=== PATIENT | female | born 1960 | race Caucasian/White ===

== ENCOUNTER → 2016-05-09 | Outpatient (CLI) | payer BC | LOC: FIMAGING 08:10 | DX: Z12.31 Encounter for screening mammogram for malignant neoplasm of breast (principal); Z85.3 Personal history of malignant neoplasm of breast | CPT/HCPCS: G0202 ==

== ENCOUNTER → 2016-05-18 | Outpatient (CLI) | payer BC | LOC: CIMAGING 12:53 | PROVIDERS: ATTEND Internal Medicine Hematology & Oncology | DX: Z03.89 Encounter for observation for other suspected diseases and conditions ruled out (principal); D05.10 Intraductal carcinoma in situ of unspecified breast | CPT/HCPCS: 76641-PO; G0206 ==

== ENCOUNTER → 2017-05-28 | Outpatient (CLI) | payer BC | LOC: FIMAGING 07:49 | PROVIDERS: ATTEND Internal Medicine Hematology & Oncology | DX: Z12.31 Encounter for screening mammogram for malignant neoplasm of breast (principal); Z85.3 Personal history of malignant neoplasm of breast ==

== ENCOUNTER 2018-05-26 22:25 | Emergency (ER) | payer BC ==
--- NOTE | 2018-05-26 23:33 | EDPHY ---
H & P Stated Complaint: back/abd cramping, nausea - Personal History Current Tetanus Diphtheria and Acellular Pertussis (TDAP): Yes - Medical/Surgical History Hx Asthma: No Hx Chronic Respiratory Disease: No Hx Diabetes: No Hx Cardiac Disease: No Hx Renal Disease: No Hx Cirrhosis: No Hx Alcoholism: No Hx HIV/AIDS: No Hx Splenectomy or Spleen Trauma: No Other PMH: migraines - Social History Smoking Status: Never smoked Time Seen by Provider: 05/26/18 23:16 HPI/ROS: CHIEF COMPLAINT: Suprapubic pain and cramping HISTORY OF PRESENT ILLNESS: 57-year-old immunocompetent female complaining of suprapubic pain, pressure, cramping sensation, dysuria since this evening, described as "really bad menstrual cramps" however the patient is postmenopausal. She also reports intermittent radiation to her low back. No vaginal bleeding or discharge. PRIMARY CARE PROVIDER: REVIEW OF SYSTEMS: 10 systems reviewed and negative with the exception of the elements mentioned in the history of present illness PAST MEDICAL & SURGICAL HISTORY: Migraine headache SOCIAL HISTORY: PHYSICAL EXAM (Prior to examination, patient consented to physical exam, hands were washed and my usual and customary physical exam procedures followed) 1) GENERAL: Well-developed, well-nourished, alert and oriented. Appears to be in no acute distress. 2) HEAD: Normocephalic, atraumatic 3) HEENT: Pupils equal, round, reactive to light bilaterally. Sclera anicteric. 4) NECK: Full range of motion, no meningeal signs. 5) LUNGS: Clear auscultation bilaterally, no wheezes, no rhonchi, no retractions. 6) HEART: Regular rate and rhythm, no murmur, no heave, no gallop. 7) ABDOMEN: No guarding, no rebound, no focal tenderness, negative McBurney's, negative Resendiz's, negative Rovsing's, negative peritoneal sign,I am unable to elicit any abdominal pain whatsoever on exam 8) MUSCULOSKELETAL: Moving all extremities, no focal areas of tenderness, no obvious trauma. No peripheral edema or discoloration. 9) BACK: No CVA tenderness, no midline vertebral tenderness, no fluctuance, no step-off, no obvious trauma, no visual or palpable abnormality. 10) SKIN: No rash, no petechiae. 11) Psychiatric: Patient is oriented X 3, there is no agitation. DIFFERENTIAL DIAGNOSIS: My differential diagnosis includes, but is not limited to, acute appendicitis, acute cholecystitis, bowel obstruction, acute pancreatitis, ovarian torsion, ectopic , gastritis and urinary tract infection. The patient understands that this diagnosis is provisional and can never be 100% accurate. This is a partial list of diagnoses considered. These considerations are based on history, physical exam, past history and reassessment. (Georgina Chambers) Constitutional: Initial Vital Signs Temperature (C) 37 C 05/26/18 22:27 Heart Rate 76 05/26/18 22:27 Respiratory Rate 16 05/26/18 22:27 Blood Pressure 141/69 H 05/26/18 22:27 O2 Sat (%) 98 05/26/18 22:27 O2 Delivery Mode Room Air Allergies/Adverse Reactions: No Known Intolerances Allergy (Verified 08/05/12 20:25) Home Medications: Medication Instructions Recorded Estradiol [Estrace Vaginal] 1 ira VAG WE@2100 08/05/12 Pharmacist Completed 08/05/12 08/05/12 Topiramate 05/26/18 Hydrocodone/Acetaminophen 1 - 2 each PO Q4-6PRN PRN #10 05/27/18 [Hydrocodon-Acetaminophen 5-325] tablet Medical Decision Making - Diagnostics Imaging Results: Pelvic ultrasound shows a 4.8 cm complex mass in the right ovary, question fat containing, normal flow, differential glued stool dermoid cyst versus other nonspecified mass. Radiology is recommending he CT scan or pelvic MRI. Study interpreted by Dr. Anderson. (Lorenzo Live) ED Course/Re-evaluation: Ultrasound results noted. I have discussed with patient. Plan will be to discharge with follow up with OBGYN, return for any concerns. Will discharge with oral analgesia. (Lorenzo Live) 12:18 a.m.: Re-evaluation. Patient's urinalysis positive only for 1+ bacteria. I am re-examined the patient at this time she complains of suprapubic cramping sensation. Discussed possible etiologies for her pain. We discussed possibility of ovarian pathology, possible diverticulitis. Recommend laboratory studies, pelvic ultrasound, possible CT imaging. 1:30 a.m.: Care turned over to Dr. Live, awaiting ultrasound imaging results ( Georgina Chambers) - Data Points Laboratory Results: Laboratory Results 05/27/18 00:26 05/27/18 00:26 Microbiology Results: MICROBIOLOGY 05/26/18 23:30 Urine,Clean Catch Urine Culture - Preliminary Gram Neg Shaun Lactose Legal Records Clerk [facility] [place] Type Medications Given: Discontinued Medications Hydrocodone Bitart/Acetaminophen ([place] 5/325mg Prepack#6) 1 btl TAKEHOME EDNOW ONE Stop: 05/27/18 02:49 Last Admin: 05/27/18 02:52 Dose: 1 btl Departure - Departure Disposition: Home, Routine, Self-Care Clinical Impression: Ovarian mass Condition: Good Instructions: Hydrocodone/Acetaminophen (By mouth), Pelvic Pain (ED) Additional Instructions: Follow up with OBGYN in 1-2 days for further evaluation. Return to the emergency depart for worsening pain, uncontrolled nausea vomiting , fevers or chills, or any other concerns. Referrals: Verito Hurd MD [Primary Care Provider] - As per Instructions Kristi Gayle MD [Medical Doctor] - As per Instructions Prescriptions: Hydrocodone/Acetaminophen [Hydrocodon-Acetaminophen 5-325] 1 - 2 each PO Q4- 6PRN PRN #10 tablet PRN Reason: Pain, Severe
[2018-05-27 00:43] LABS: PLATELET COUNT 252 10^3/uL (150-400)
[2018-05-27 01:43] VITALS: BP 122/60
[2018-05-27] MEDS ORDERED: HYDROCOD/APAP 5/325 PREPACK#6 BTL TAKEHOME ONE (02:48)
== END 2018-05-27 02:59 | disposition home or self-care (01) ==
DX: N83.9 Noninflammatory disorder of ovary, fallopian tube and broad ligament, unspecified (principal); Z78.0 Asymptomatic menopausal state

== ENCOUNTER → 2018-05-29 | Outpatient (CLI) | payer BC ==
[~2018-05-29] MED LIST: GADOBUTROL 10 ML VIAL IVP ONE
== END ==
LOC: FIMAGING 07:49
PROVIDERS: ATTEND Internal Medicine
DX: Z12.31 Encounter for screening mammogram for malignant neoplasm of breast (principal); Z85.3 Personal history of malignant neoplasm of breast; D27.1 Benign neoplasm of left ovary
CPT/HCPCS: A9585

== ENCOUNTER 2018-07-01 05:43 | Day surgery (SDC) | payer BC ==
[2018-07-01] MEDS ORDERED: LR 1,000 ML IV ONE (06:05)
[2018-07-01 06:38] LABS: PLATELET COUNT 235 10^3/uL (150-400)
[2018-07-01] MEDS ORDERED: BUPIVACAINE 0.25% 30 ML SDV ONE ×2 (06:50→06:51)
[2018-07-01] MEDS ORDERED: MIDAZOLAM 2 MG/2 ML VIAL IVP ONE (07:01)
--- NOTE | 2018-07-01 07:02 | PDANEPAE ---
ANE History of Present Illness dermoid cyst ANE Past Medical History - Cardiovascular History Hx Hypertension: No Hx Arrhythmias: No Hx Chest Pain: No Hx Coronary Artery / Peripheral Vascular Disease: No Hx CHF / Valvular Disease: No Hx Palpitations: No - Pulmonary History Hx COPD: No Hx Asthma/Reactive Airway Disease: No Hx Recent Upper Respiratory Infection: No Hx Oxygen in Use at Home: No Hx Sleep Apnea: No Sleep Apnea Screening Result - Last Documented: Negative - Neurologic History Hx Cerebrovascular Accident: No Hx Seizures: No Hx Dementia: No - Endocrine History Hx Diabetes: No Hypothyroid: No Hyperthyroid: No Obesity: no - Renal History Hx Renal Disorders: No - Liver History Hx Hepatic Disorders: No - Neurological & Psychiatric Hx Hx Neurological and Psychiatric Disorders: Yes Neurological / Psychiatric History Comment: migraines - Cancer History Hx Cancer: Yes Cancer History Comment: breast - Congenital Disorder History Hx Congenital Disorders: No - GI History GERD: no Hx Gastrointestinal Disorders: No - Other Health History Other Health History: dental implants. dermoid cyst - Chronic Pain History Chronic Pain: No - Surgical History Prior Surgeries: lumpectomy 12yrs ago. ectopic ANE Review of Systems Review of systems is: negative Review of Systems: - Exercise capacity Exercise capacity: >=4 METS METS (RN): 5 METS ANE Patient History - Allergies Allergies/Adverse Reactions: No Known Allergies Allergy (Verified 06/27/18 10:42) - Home Medications Home medications: home medication list seen and reviewed Home Medications: Topiramate 05/26/18 [Last Taken 06/30/18] Herbals/Supplements -Info Only 06/27/18 [Last Taken 1 Week Ago ~06/24/18] - NPO status NPO Status: no food or drink >8 hours NPO Since - Liquids (Date): 07/01/18 NPO Since - Liquids (Time): 05:00 NPO Since - Solids (Date): 06/30/18 NPO Since - Solids (Time): 19:30 - Anes Hx Anes Hx: no prior problems - Smoking Hx Smoking Status: Never smoked - Family Anes Hx Family Hx Anesthesia Complications: none ANE Labs/Vital Signs - Labs Result Diagrams: 07/01/18 06:15 - Vital Signs Vital Signs: reviewed preoperatively; see RN documention for details Blood Pressure: 110/56 Heart Rate: 68 Respiratory Rate: 14 O2 Sat (%): 96 Height: 175.26 cm Weight: 63.503 kg ANE Physical Exam - Airway Neck exam: FROM Mallampati Score: Class 2 Mouth exam: normal dental/mouth exam - Pulmonary Pulmonary: no respiratory distress, clear to auscultation - Cardiovascular Cardiovascular: regular rate and rhythym, no murmur, rub, or gallop - ASA Status ASA Status: II ANE Anesthesia Plan Anesthesia Plan: general endotracheal anesthesia
[2018-07-01] MEDS ORDERED: fentaNYL 100 MCG/2 ML INJ ONE ×2 (07:08→09:17)
[2018-07-01] MEDS ORDERED: PROPOFOL/EMULSION 500 MG/50 ML BOTTLE IV ONE (07:08)
[2018-07-01] MEDS ORDERED: PROPOFOL 200 MG/20 ML VIAL ONE ×2 (07:08→08:27)
--- NOTE | 2018-07-01 07:32 | PDHPUP ---
History & Physical Update H&P update statement: This history and physical update is based on an assessment of the patient which was completed after admission or registration (within 24 hours), but prior to the surgery/procedure. H&P update: H&P reviewed & patient examined, no change in patient's condition since H&P completed
[2018-07-01] MEDS ORDERED: DEXAMETHASONE 4 MG/ML VIAL ONE ×2 (07:46)
[2018-07-01] MEDS ORDERED: ONDANSETRON 4 MG/2 ML VIAL ONE (07:46)
[2018-07-01] MEDS ORDERED: NALOXONE HCL 0.4 MG/ML INJ IVP PRN (08:25)
[2018-07-01] MEDS ORDERED: LR 500 ML IV PRN (08:25)
[2018-07-01] MEDS ORDERED: PROMETHAZINE HCL 25 MG/ML INJ IVP PRN (08:25)
[2018-07-01] MEDS ORDERED: ALBUTEROL 3 ML DEYVIAL IH PRN (08:25)
[2018-07-01] MEDS ORDERED: HYDROmorphONE/DILAUDID 1 MG/ML INJ IVP PRN (08:25)
[2018-07-01] MEDS ORDERED: ONDANSETRON 4 MG/2 ML VIAL IVP PRN (08:25)
[2018-07-01] MEDS ORDERED: fentaNYL 100 MCG/2 ML INJ IVP PRN (08:25)
[2018-07-01] MEDS ORDERED: DEXAMETHASONE 4 MG/ML VIAL IVP PRN (08:25)
[2018-07-01] MEDS ORDERED: PHENYLEPHRINE HCL 100 MCG/ML SYR IVP PRN (08:25)
[2018-07-01] MEDS ORDERED: MEPERIDINE 25 MG/0.5 ML AMP IVP PRN (08:25)
[2018-07-01] MEDS ORDERED: LABETALOL HCL 5 MG/ML 20 ML MDV IVP PRN (08:25)
[2018-07-01] MEDS ORDERED: oxyCODONE IR 5 MG TAB PO PRN (08:25)
[2018-07-01] MEDS ORDERED: ACETAMINOPHEN 500 MG TAB PO PRN (08:25)
[2018-07-01] MEDS ORDERED: METOCLOPRAMIDE 10 MG/2 ML VIAL IVP PRN (08:25)
[2018-07-01] MEDS ORDERED: NEOSTIGMINE METHYLSULFATE 10 MG/10 ML MDV ONE (08:39)
[2018-07-01] MEDS ORDERED: GLYCOPYRROLATE 0.2 MG/1 ML VIAL ONE ×2 (08:39)
[2018-07-01] MEDS ORDERED: KETOROLAC 30 MG/1 ML SDV ONE (08:40)
[2018-07-01] MEDS ORDERED: HYDROmorphONE/DILAUDID 1 MG/ML INJ ONE (09:17)
--- NOTE | 2018-07-01 10:21 | POSTOPPROG ---
Post Op Note Date of Operation: 07/01/18 Surgeon: Lisbeth Quezada Anesthesiologist: Milton Zabala Anesthesia: LMA Pre-op Diagnosis: symptomatic dermoid cyst, desires BSO Post-op Diagnosis: same Indication: same Procedure: L/S BSO/ removal of dermoid cyst Findings: large left dermoid cyst , no pelvis Inf/Abcess present in the surg proc area at time of surgery?: No EBL: Minimal Complications: none Specimen(s): bilatera tubes ovaries and dermoid cyst
[2018-07-01 10:59] VITALS: BP 105/74
--- NOTE | 2018-07-01 13:05 | GOP ---
[f rep st] OPERATIVE REPORT DATE OF OPERATION: 07/01/2018 SURGEON: Lisbeth Quezada MD ANESTHESIA: General with LMA. ANESTHESIOLOGIST: Eric Zabala MD PREOPERATIVE DIAGNOSIS: 1. Symptomatic left adnexal dermoid cyst. 2. Desires prophylactic bilateral salpingo-oophorectomy. POSTOPERATIVE DIAGNOSIS: 1. Symptomatic left adnexal dermoid cyst. 2. Desires prophylactic bilateral salpingo-oophorectomy. PROCEDURE PERFORMED: Laparoscopic removal of left dermoid cyst plus removal of left adnexa and right salpingo-oophorectomy. FINDINGS: Normal pelvic findings with a normal-appearing atrophic right ovary, fallopian tube, and t hen on the left is an about a 5 cm ovarian mass that is sitting in the cul-de-sac. There were no ski n adhesions and the left ovary was ESTIMATED BLOOD LOSS: Minimal. INDICATIONS: Patient is a 57-year-old who was noted recently to have acute onset of pelvic pain caus ing nausea and vomiting, and almost syncope, was seen in the emergency room and diagnosed with a left adnexal mass on ultrasound. An MRI showed a likely 5 cm dermoid cyst, and it was suspected that it had torsed and untorsed, and patient was sent home and desires definitive treatment as she plans to t [place] quite a bit this summer, and also would like to have her other ovary removed as Well. DESCRIPTION OF PROCEDURE: With informed consent signed, patient was taken to the operating room and placed under general anesthesia without complication, placed in the low dorsal lithotomy position, pr epped and draped in the usual sterile fashion. Tenaculum placed on the anterior lip of the cervix an d Wojciech cannula into the cervical os. Attention turned to the abdomen and incision sites were preinjected with 0.25% Marcaine, and then an incision was made in the inferior aspect of the umbilicus. Veress needle placed with ease into the a bdominal cavity, which was then CO2 gas. Once an adequate pneumoperitoneum was establishe d, then a 5 mm trocar placed in the suprapubic region a left lower quadrant incision was m ren and a 15 mm trocar placed. The right ovary was grasped and the Gyrus device was used to cauteriz e, then transect the utero-ovarian ligament at the uterine cornua and then across the round ligament, across the broad ligament, and then the Gyrus was used to clamp across the infundibulopelvic ligamen t, and then the ovary and fallopian tube were placed in the anterior cul-de-sac. Attention now turne d to the left adnexa and the left utero-ovarian ligament was clamped and cauterized with t he Gyrus, and then across the round ligament and the broad ligament including the fallopian tube as w ell and the infundibulopelvic ligament on the left side was clamped, cauterized, cut, and the specime n was placed in the endobag. The other ovary was placed in the Endobag and this was removed through the left lower quadrant incision site. The dermoid did rupture with removal at . Irritati on was then done of the pedicles and hemostasis was noted, and then the abdomen desufflated and the l eft lower quadrant incision closed with 2-0 Vicryl into the fascia, and then the skin was closed with 4-0 Monocryl, and then cannula and tenaculum bleeding. The patient placed in supine position, awakened in the operating room, taken to the recovery room COMPLICATIONS: None. COMPLICATIONS: None. /[id number]/MODL
--- NOTE | 2018-07-01 13:54 | POSTANESTH ---
Post Anesthetic Evaluation Cardiovascular Status: Normal, Stable Respiratory Status: Normal, Stable Level of Consciousness/Mental Status: Can Participate in Eval Pain Control: Adequate, Prn Tx Ordered Nausea/Vomiting Control: Adequate, Prn Tx Ordered Complications Possibly Related to Anesthesia: None Noted
== END 2018-07-01 11:02 | disposition home or self-care (01) ==
LOC: FSGY 05:43
PROVIDERS: ATTEND Obstetrics & Gynecology Gynecology
DX: D27.1 Benign neoplasm of left ovary (principal); N83.8 Other noninflammatory disorders of ovary, fallopian tube and broad ligament; R10.2 Pelvic and perineal pain
CPT/HCPCS: J1100; J1170; J1885; J2250; J2405; J2704; J3010